=== PATIENT | female | born 2000 | race Caucasian/White ===

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

== ENCOUNTER 2024-05-01 11:59 | Outpatient (CLI) | payer OTHER, SELFPAY ==
[2024-05-01 12:19] LABS: Basophils Percent Auto 0.4 % (0.2-1.2); Eosinophils Percent Auto 0.6 % (0-4.4); Immature Granulocyte Absolute 0.01 K/mm3 (0.00-0.031); Immature Granulocyte Percent A 0.2 % (0-0.5); Lymphocytes Absolute Auto 1.08 K/mm3 (0.9-3.2); Lymphocytes Percent Auto 20.9 % (18.3-44.2); Mean Corpuscular HGB Conc 34.2 g/dl (32-36); Mean Corpuscular Hemoglobin 31.2 pg (26-34); Mean Corpuscular Volume 91.1 fl (80-100); Mean Platelet Volume 11.2 fl (7.4-10.4); Monocytes Absolute Auto 0.3 K/mm3 (0.1-0.6); Monocytes Percent Auto 5.8 % (2.6-8.5); Neutrophils Absolute Auto 3.7 K/mm3 (1.3-6.7); Neutrophils Percent Auto 72.1 % (45.5-73.1); Platelet Count Result 188 k/mm3 (150-375); Red Blood Count 4.17 M/mm3 (4.2-5.4); Red Cell Distribution Width 12.7 % (11.5-14.5); White Blood Count 5.2 K/mm3 (4.5-10.0)
[2024-05-01 12:39] LABS: Alanine Aminotransferase 17 U/L (6-35); Albumin Level 4.5 g/dL (3.5-5.1); Alkaline Phosphatase 65 U/L (38-126); Anion Gap 7 mmol/L (4-12); Aspartate Amino Transferase 20 U/L (14-36); Bilirubin,Total 0.9 mg/dL (0.2-1.3); Blood Urea Nitrogen 7 mg/dL (7-17); Calcium 9.1 mg/dL (8.4-10.2); Carbon Dioxide 28 mmol/L (22-30); Chloride 104 mmol/L (98-107); Estimated Glomerular Filt Rate > 60; Glucose 97 mg/dL (65-110); Sodium 139 mmol/L (137-145)
== END 2024-05-01 12:00 | disposition home or self-care (01) ==
LOC: ANHLAB 12:00
PROVIDERS: PCP Family Medicine; Visit Provider Physician Assistant
DX: R63.5 Abnormal weight gain (principal); Z00.00 Encounter for general adult medical examination without abnormal findings; Z13.29 Encounter for screening for other suspected endocrine disorder; E07.9 Disorder of thyroid, unspecified
CPT/HCPCS: 36415; 80053; 84443; 85025

== ENCOUNTER 2025-11-09 16:19 | Emergency (ER) | payer SELFPAY ==
--- NOTE | ~2025-11-09 | XR_ITS ---
XR abdomen/kub 1V INDICATION: left sided 3mm stone REFERENCE: NONE FINDINGS: A supine view of the abdomen is submitted. The bowel gas pattern is nonobstructive. No free air is identified. Osseous structures are intact. IMPRESSION: Normal KUB. Reviewed, dictated and finalized at location [facility]. [facility] [employer] [employer] IMPRESSION: Normal KUB.
[2025-11-09 16:38] VITALS: BP 131/76; PULSE 81; RESP 18; TEMP 36.4; O2SAT 100
--- NOTE | 2025-11-09 20:18 | ED.GENADULT ---
HPI - General Adult General Chief complaint: Nausea/Vomiting/Diarrhea Stated complaint: L flank pain, dx kidney stone, vomiting Time Seen by Provider: 11/09/25 19:57 History of Present Illness HPI narrative: Patient is a 24-year-old female who presents ER with left flank pain and abdominal pain. Diagnosed with a kidney stone 4 days ago. Has been having difficulty keeping down any of her home medications that were prescribed [facility]. She called Urology who recommended she come to the ER. On her way to the ER her pain suddenly resolved. No additional vomiting for pain at this time in the room. Denies dysuria but has had some urinary frequency. No obvious hematuria. Related Data Home Medications ?Medication ?Instructions ?Recorded ?Confirmed ?Last Taken ?Type etonogestrel 68 mg subdermal 1 implant subdermal ONCE 04/03/23 07/20/25 Unknown History implant (Nexplanon) Allergies Allergy/AdvReac Type Severity Reaction Status Date / Time No Known Allergies Allergy Verified 11/09/25 16:20 Review of Systems Review of Systems: All systems reviewed & are unremarkable except as noted in HPI and below Constitutional: Constitutional: Reports no additional constitutional complaints Gastrointestinal: Gastrointestinal: Reports no additional gastrointestinal complaints Genitourinary: Genitourinary: Reports no additional female genitourinary complaints [facility] Past Medical History Medical History (Updated 11/09/25 @ 21:58 by Buddy Adams MD) Kidney stones Social History Social History Social History: Single Years smoked: 4 Smoking status: Current some day smoker (vaping) Tobacco type: e-cigarettes/vaping Second hand tobacco smoke exposure: Yes Alcohol intake: current Alcohol use details: Rarely Substance use: current Substance use type: marijuana Last use: Pt smokes marijuana daily. Lack of Transportation: No Lack of Food: Never True Current Housing: I Have Housing Concerned About Future Housing: No Difficulty Paying Gas/Electric Bills: No Difficulty Paying for Meds: No Currently Unemployed: No Education: High School Diploma/GED Difficulty w/ Childcare or Family Care: No Living arrangements: with family Occupation/Education: occupation Gender identity (if verbalized by the patient): Female Sexual Orientation (if Verbalized by the Patient): Straight or Heterosexual Exam Narrative: GENERAL: Well-appearing, well-nourished, and in no acute distress. HEAD: Normocephalic, atraumatic. ENT: Mucous membranes moist. CHEST: Clear to auscultation. No respiratory distress. HEART: Regular rate and rhythm. Normal peripheral pulses. ABDOMEN: Soft, nontender, nondistended. EXTREMITIES: Normal range of motion. No edema. SKIN: Warm, dry, no rash. NEURO: Alert and oriented x3. PSYCH: Normal mood and affect. Course Course Emergency Course: No pain in the ER. Hydrated, given Toradol and Zofran. Appropriate for discharge home. KUB without hydronephrosis or stone presents. She may continue to strain her urine. Vital Signs Vital signs: Vital Signs Temperature 97.5 F L 11/09/25 16:38 Pulse Rate 81 11/09/25 16:38 Respiratory Rate 18 11/09/25 16:38 Blood Pressure 131/76 11/09/25 16:38 Pulse Oximetry 100 11/09/25 16:38 Oxygen Delivery Room Air 11/09/25 16:38 Temperature 98.1 F 11/09/25 20:19 Pulse Rate 70 11/09/25 20:19 Respiratory Rate 18 11/09/25 20:19 Blood Pressure 119/78 11/09/25 20:19 Pulse Oximetry 100 11/09/25 20:19 Oxygen Delivery Room Air 11/09/25 16:38 MDM Differential Diagnosis Differential Diagnosis: Kidney stone, UTI, diverticulitis Lab Data [facility] Lab Attestation statement: I personally reviewed the patient's lab results. Labs: Lab Results 11/09/25 11/09/25 Range/Units 20:28 20:32 Urine Color Yellow (Yellow) Urine Appearance Clear (Clear) Urine pH 5.0 (5.0-9.0) Ur Specific Drifting 1.005 (1.001-1.035) Urine Protein Negative (Negative) mg/dL Urine Glucose (UA) Negative (Negative) mg/dL Urine Ketones 2+ H (Negative) mg/dL Ur Blood (Man) 3+ H (Negative) Urine Nitrate Negative (Negative) Urine Bilirubin Negative (Negative) Urine Urobilinogen 0.2 (<2.0) mg/dL Leukocyte Esterase Rfl Negative (Negative) MARCOS/UL Urine RBC 3-5 H (0-2) /hpf Urine WBC 0-5 (0-3) /hpf Ur Squamous Epith Cells None seen (Few) /hpf Urine Bacteria None seen /hpf Urine Casts 0-2 POC Urine HCG, Qual Negative (Negative) Imaging Data Radiologist's impression: ITS Impressions Abdomen X-Ray 11/09/25 20:56 IMPRESSION: Normal KUB. Discharge Plan Discharge Clinical Impression: Renal colic Patient Disposition: Home Condition: Stable Instructions: Renal Colic (ED) Additional Instructions: Your having side effects and passing a kidney stone. You may continue to strain your urine at home to see if the stone passes. You are being prescribed Zofran for nausea. Patient Language: Cambodian Prescriptions: New ondansetron 4 mg tablet,disintegrating 4 mg PO Q6H PRN (Reason: nausea and vomiting) Qty: 10 0RF No Action amitriptyline 25 mg tablet 25 mg PO QHS Qty: 30 1RF sumatriptan succinate 50 mg tablet See Rx Instructions PO .COMPLEX Qty: 14 1RF Rx Instructions: take 1 tab at onset of headache; if no relief may repeat 1 tab after at least 2 hrs; max = 4 tabs/24 hr PO Nexplanon 68 mg implant 1 implant subdermal ONCE Rx Instructions: as a single dose Follow-up/Referrals: Kadeem Grier MD [Primary Care Provider, Family Practice] - 1 Week
[2025-11-09 20:19] VITALS: BP 119/78; PULSE 70; RESP 18; TEMP 36.7; O2SAT 100
[2025-11-09 20:29] LABS: BEDSIDEPREGUCG Negative (Negative)
[2025-11-09] MEDS: SODIUM CHLORIDE 0.9% IV 1,000 ML 999 ML IV CONT (20:31)
[2025-11-09] MEDS: ONDANSETRON INJ 4 MG/2 ML VIAL IV PUSH (20:33)
[2025-11-09] MEDS: KETOROLAC 30 MG/ML VIAL (*BKC) IV PUSH (20:34)
[2025-11-09 21:09] LABS: Add Urine Microscopic? YES; Appearance Urine Clear (Clear); Glucose Urine UA Negative (Negative); Leukocyte Esterase Ur Negative LEU/UL (Negative); Nitrate Urine Negative (Negative); Non Pathogenic Casts 0-2; Specific Grav Ur 1.005 (1.001-1.035)
[2025-11-09 22:06] VITALS: BP 111/72; PULSE 78; RESP 16; O2SAT 99
== END 2025-11-09 22:06 | disposition home or self-care (01) ==
PROVIDERS: Emergency Provider Emergency Medicine; PCP Family Medicine
DX: N23 Unspecified renal colic (principal); F17.290 Nicotine dependence, other tobacco product, uncomplicated; F12.90 Cannabis use, unspecified, uncomplicated
CPT/HCPCS: 74018; 81001; 81025; 96361; 96374; 96375; 99284; J1885; J2405; J7030